=== PATIENT | male | born 1970 | race Caucasian/White ===

== ENCOUNTER 2017-02-05 10:03 | Emergency (ER) | payer SELFPAY ==
[~2017-02-05] VITALS: Ht 180.3 cm; Wt 81.6 kg
[~2017-02-05 10:03] MED LIST: AUGMENTIN 500 M1 TAB PO; NKHM
== END 2017-02-05 13:42 | disposition home or self-care (01) ==
LOC: ED 10:03
DX: S05.02XA Injury of conjunctiva and corneal abrasion without foreign body, left eye, initial encounter (principal); F17.200 Nicotine dependence, unspecified, uncomplicated; Z88.6 Allergy status to analgesic agent; X58.XXXA Exposure to other specified factors, initial encounter; Y93.89 Activity, other specified; Y92.89 Other specified places as the place of occurrence of the external cause; Y99.8 Other external cause status

== ENCOUNTER 2017-07-24 18:36 | Emergency (ER) | payer OTHER ==
[~2017-07-24] VITALS: Ht 180.3 cm; Wt 77.1 kg
== END 2017-07-24 19:06 | disposition left against medical advice (07) ==
LOC: ED 18:36
DX: M25.521 Pain in right elbow (principal); F17.200 Nicotine dependence, unspecified, uncomplicated; Z88.6 Allergy status to analgesic agent

== ENCOUNTER 2019-06-30 13:50 | Emergency (ER) | payer OTHER ==
[~2019-06-30] VITALS: Ht 180.3 cm; Wt 90.7 kg
[2019-06-30 14:18] LABS: BASO # 0.1 10*3/uL (0.0-0.1); BASO % 0.6 % (0.0-1.0); EOS % 0.2 % (1.0-4.0); HEMATOCRIT 49.7 % (42.0-52.0); HEMOGLOBIN 17.3 g/dl (14.0-18.0); LYMPH # 2.3 10*3/uL (1.3-4.4); LYMPH % 25.7 % (27.0-41.0); MEAN CELL VOLUME 94.3 fl (80.0-94.0); MEAN CORPUSCULAR HGB 32.8 pg (27.0-31.0); MEAN CORPUSCULAR HGB CONC 34.8 g/dl (33.0-37.0); MEAN PLATELET VOLUME 9.2 fl (9.6-12.3); MONO # 0.5 10*3/uL (0.1-1.0); MONO % 5.8 % (3.0-9.0); NEUT # 5.9 10*3/uL (2.3-7.9); NEUT % 67.2 % (47.0-73.0); PLATELET COUNT AUTOMATED 237 10*3/uL (130-400); RED BLOOD COUNT 5.27 10*6/uL (4.50-5.90); RED CELL DISTRI WIDTH 13.3 % (0-14.5); WHITE BLOOD COUNT 8.8 10*3/uL (4.8-10.8)
[2019-06-30 14:32] LABS: ALBUMIN 3.9 gm/dl (3.1-4.5); ALKALINE PHOSPHATASE 153 U/L (45-117); BUN 3 mg/dl (7-24); CHLORIDE 109 mmol/L (98-107); CREATININE 0.96 mg/dL (0.70-1.30); POTASSIUM 3.2 mmol/L (3.5-5.1); SGOT/AST 56 IU/L (3-35); SGPT/ALT 82 U/L (12-78); SODIUM 141 mmol/L (136-145); TOTAL PROTEIN 7.9 gm/dL (6.4-8.2)
[2019-06-30 14:37] LABS: BILIRUBIN NEGATIVE (NEGATIVE); BLOOD NEGATIVE (NEGATIVE); CLARITY CLEAR (CLEAR); COLOR YELLOW (YELLOW); GLUCOSE NEGATIVE (NEGATIVE); KETONE NEGATIVE (NEGATIVE); LEUKO ESTERASE NEGATIVE (NEGATIVE); NITRITE NEGATIVE (NEGATIVE); SPECIFIC GRAVITY <= 1.005 (1.005-1.030); UROBILINOGEN 0.2 E.U./dl (0.2-1.0)
[2019-06-30 14:45] LABS: URINE AMPHETAMINES < 1000 (1000ng/ml); URINE BARBITURATES < 200 (200ng/ml); URINE BENZODIAZEPINES < 200 (200ng/ml); URINE CANNABINOIDS (THC) < 50 (50ng/ml); URINE COCAINE < 300 (300ng/ml); URINE METHADONE < 300 (300ng/ml); URINE OPIATES < 300 (300ng/ml)
[2019-06-30 14:46] LABS: BACTERIA TRACE; RBC 0-2 rbc/hpf (0-2); WBC 0-2 wbc/hpf (0-5)
[2019-06-30 14:47] LABS: URINE PHENCYCLIDINE < 25 (25ng/ml)
[2019-07-01] MEDS ORDERED: LEVOTHYROXINE50 MCG PO (02:42)
[2019-07-01] MEDS ORDERED: PRILOSEC20 M1 PO (02:43)
[2019-07-01] MEDS ORDERED: HUMULIN N100 UNIT/1 SC (02:43)
[2019-07-01] MEDS ORDERED: THIAMINE HCL100 MG PO (09:18)
[2019-07-01] MEDS ORDERED: HUMALOG100 UNIT/1 SQ (09:18)
[2019-07-01] MEDS ORDERED: LISINOPRIL2.5 MG PO (09:18)
== END 2019-06-30 15:59 | disposition left against medical advice (07) ==
LOC: ED 13:50
PROVIDERS: Emergency Medicine
DX: E11.649 Type 2 diabetes mellitus with hypoglycemia without coma (principal); F10.129 Alcohol abuse with intoxication, unspecified; F17.200 Nicotine dependence, unspecified, uncomplicated; Z79.4 Long term (current) use of insulin; Z88.6 Allergy status to analgesic agent; Y90.8 Blood alcohol level of 240 mg/100 ml or more

== ENCOUNTER 2019-07-01 | Inpatient (IN) | payer OTHER ==
[~2019-07-01] VITALS: Ht 180.3 cm; Wt 91.0 kg
[2019-07-01 00:02] VITALS: BP 157/94
[2019-07-01 00:39] VITALS: BP 147/87
[2019-07-01 01:03] LABS: BASO % 0.5 % (0.0-1.0); EOS % 0.2 % (1.0-4.0); HEMATOCRIT 49.2 % (42.0-52.0); LYMPH # 1.6 10*3/uL (1.3-4.4); LYMPH % 19.6 % (27.0-41.0); MEAN CELL VOLUME 95.5 fl (80.0-94.0); MEAN CORPUSCULAR HGB CONC 34.6 g/dl (33.0-37.0); MEAN PLATELET VOLUME 9.2 fl (9.6-12.3); MONO # 0.6 10*3/uL (0.1-1.0); MONO % 7.7 % (3.0-9.0); NEUT # 5.9 10*3/uL (2.3-7.9); NEUT % 71.9 % (47.0-73.0); PLATELET COUNT AUTOMATED 199 10*3/uL (130-400); RED BLOOD COUNT 5.15 10*6/uL (4.50-5.90); RED CELL DISTRI WIDTH 13.4 % (0-14.5); WHITE BLOOD COUNT 8.2 10*3/uL (4.8-10.8)
[2019-07-01 01:11] LABS: BILIRUBIN NEGATIVE (NEGATIVE); BLOOD 2+ (NEGATIVE); CLARITY CLEAR (CLEAR); COLOR YELLOW (YELLOW); GLUCOSE NEGATIVE (NEGATIVE); KETONE NEGATIVE (NEGATIVE); LEUKO ESTERASE NEGATIVE (NEGATIVE); NITRITE NEGATIVE (NEGATIVE); SPECIFIC GRAVITY <= 1.005 (1.005-1.030); UROBILINOGEN 0.2 E.U./dl (0.2-1.0)
[2019-07-01 01:19] LABS: URINE AMPHETAMINES < 1000 (1000ng/ml); URINE BARBITURATES < 200 (200ng/ml); URINE BENZODIAZEPINES < 200 (200ng/ml); URINE CANNABINOIDS (THC) < 50 (50ng/ml); URINE COCAINE < 300 (300ng/ml); URINE METHADONE < 300 (300ng/ml); URINE OPIATES < 300 (300ng/ml)
[2019-07-01 01:20] VITALS: BP 145/88
[2019-07-01 01:20] LABS: URINE PHENCYCLIDINE < 25 (25ng/ml)
[2019-07-01 01:20] LABS: ALBUMIN 3.8 gm/dl (3.1-4.5); ALKALINE PHOSPHATASE 140 U/L (45-117); BUN 2 mg/dl (7-24); CHLORIDE 107 mmol/L (98-107); CREATININE 0.94 mg/dL (0.70-1.30); POTASSIUM 3.3 mmol/L (3.5-5.1); SGOT/AST 57 IU/L (3-35); SGPT/ALT 74 U/L (12-78); SODIUM 143 mmol/L (136-145); TOTAL PROTEIN 7.7 gm/dL (6.4-8.2)
[2019-07-01 01:24] LABS: WBC 0-2 wbc/hpf (0-5)
[2019-07-01 02:00] VITALS: BP 140/67
[2019-07-01 02:30] VITALS: BP 156/88
--- NOTE | 2019-07-01 02:30 | NUR ---
A 48, admitted to , under the services of SEB Markham DO with a diagnosis of ALCOHOL INTOX. HYPOGLYCEMIA. Chief complaint is LOW BSG . Patient arrived via bed from ER. Monitor applied. Initial assessment completed. Vital signs taken and recorded. SEB MARKHAM DO notified of admission to the unit. Orders received. See assessment for past medical history, medications and allergies. Patient and/or family oriented to unit. [facility] visitation policy reviewed. Clothing/patient valuable form completed. MARY ANNE ESTRELLA
[2019-07-01] MEDS ORDERED: LEVOTHYROXINE50 MCG PO (02:42)
[2019-07-01] MEDS ORDERED: PRILOSEC20 M1 PO (02:43)
[2019-07-01] MEDS ORDERED: HUMULIN N100 UNIT/1 SC (02:43)
--- NOTE | 2019-07-01 03:40 | NUR ---
DR METZGER CONTACTED REGARDING CRITICAL LACTIC
--- NOTE | 2019-07-01 06:00 | NUR ---
SLEPT SINCE ARRIVING ON FLOOR. RESPIRATIONS EASY. IV FLUIDS MAINTAINED. CALL LIGHT WITHIN REACH
[2019-07-01] MEDS ORDERED: HUMALOG100 UNIT/1 SQ (09:18)
[2019-07-01] MEDS ORDERED: LISINOPRIL2.5 MG PO (09:18)
[2019-07-01] MEDS ORDERED: THIAMINE HCL100 MG PO (09:18)
--- NOTE | 2019-07-01 10:10 | NUR ---
PATIENT DISCHARGED TO HOME.
== END 2019-07-01 10:00 | disposition home or self-care (01) | DRG 638 ==
LOC: ED → EDHOLD 01:52 → 5E 01:52
PROVIDERS: Emergency Medicine; ADMIT Internal Medicine
DX: E11.649 Type 2 diabetes mellitus with hypoglycemia without coma (principal); E87.2 Acidosis; F10.929 Alcohol use, unspecified with intoxication, unspecified; E87.6 Hypokalemia; E83.51 Hypocalcemia; E78.5 Hyperlipidemia, unspecified; E83.41 Hypermagnesemia; F17.210 Nicotine dependence, cigarettes, uncomplicated; E78.00 Pure hypercholesterolemia, unspecified; E11.65 Type 2 diabetes mellitus with hyperglycemia; Z71.6 Tobacco abuse counseling; D75.89 Other specified diseases of blood and blood-forming organs; Z88.6 Allergy status to analgesic agent; E03.9 Hypothyroidism, unspecified; Z82.49 Family history of ischemic heart disease and other diseases of the circulatory system; Z80.1 Family history of malignant neoplasm of trachea, bronchus and lung

== ENCOUNTER → 2019-07-18 | Outpatient (CLI) | payer OTHER ==
[~2019-07-18] MED LIST changes: +HUMALOG100 UNIT/1 SQ; +HUMULIN N100 UNIT/1 SC; +LEVOTHYROXINE50 MCG PO; +LISINOPRIL2.5 MG PO; +PRILOSEC20 M1 PO; +THIAMINE HCL100 MG PO
== END | disposition home or self-care (01) ==
LOC: RESCLI 00:44
DX: Z23 Encounter for immunization (principal); Z13.31 Encounter for screening for depression; E87.6 Hypokalemia; E11.649 Type 2 diabetes mellitus with hypoglycemia without coma; E03.9 Hypothyroidism, unspecified; D75.89 Other specified diseases of blood and blood-forming organs; Z76.89 Persons encountering health services in other specified circumstances; Z79.4 Long term (current) use of insulin; F17.210 Nicotine dependence, cigarettes, uncomplicated